=== PATIENT | male | born 1975 | race Two or more races ===

== ENCOUNTER 2018-11-29 11:40 | Emergency (ER) | payer SELFPAY ==
[~2018-11-29] VITALS: Ht 172.7 cm; Wt 86.4 kg
[2018-11-29 11:52] VITALS: Ht 172.7 cm; Wt 86.4 kg
[2018-11-29] MEDS ORDERED: HYDROCODONE/APAP (5/325) TAB PO ONE (13:00)
[2018-11-29] MEDS ORDERED: IBUPROFEN 600 MG TAB PO ONE (13:00)
--- NOTE | 2018-11-29 13:42 | ERD ---
ER Documentation Chief Complaint Chief Complaint RT ANKLE PAIN D/T FALL OFF 2.5' LADDER, NO DEFORMITY HPI 43-year-old male presents with pain in his right heel after falling approximately 2 feet from a ladder today. He has difficulty walking due to pain. Is no restricted range of motion weakness. He denies back pain, head injury. ROS All systems reviewed and are negative except as per history of present illness. Allergies Allergies: Coded Allergies: No Known Allergy (Unverified , 11/29/18) PMhx/Soc Medical and Surgical Hx: pt denies Medical Hx, pt denies Surgical Hx Hx Alcohol Use: No Hx Substance Use: No Hx Tobacco Use: No Smoking Status: Never smoker Physical Exam Vitals Vital Signs Date Temp Pulse Resp B/P (MAP) Pulse Ox O2 O2 Flow FiO2 Time Delivery Rate 11/29/18 97.6 76 18 146/79 97 11:52 (101) Physical Exam Const: No acute distress Head: Atraumatic Eyes: Normal Conjunctiva ENT: Normal External Ears, Nose and Mouth. Neck: Full range of motion. No meningismus. Resp: Clear to auscultation bilaterally Cardio: Regular rate and rhythm, no murmurs Abd: Soft, non tender, non distended. Normal bowel sounds Skin: No petechiae or rashes Back: No midline or flank tenderness Ext: No cyanosis, or edema or tenderness mild swelling over the right heel. No deformities. No tenderness around the ankle, or metatarsals were other parts of the foot. No appreciable knee, low back tenderness. Neur: Awake and alert Psych: Normal Mood and Affect Results 24 hrs Current Medications Medications Dose Sig/Sandip Start Time Status Last (Trade) Ordered Route PRN Stop Time Admin Dose Reason Admin Ibuprofen 600 mg ONCE ONCE 11/29/18 DC 11/29/18 (Motrin) PO 13:00 11/29/18 12:58 13:01 1 tab ONCE ONCE 11/29/18 DC 11/29/18 Acetaminophen PO 13:00 11/29/18 12:58 / 13:01 Hydrocodone Bitart ([place] (5/325)) Procedures/MDM X-ray right foot 3V Interpreted by me: Bones: No fracture Joints: No dislocation Foreign body: None. Impression-normal right foot x-ray Given [place] and ibuprofen for pain. Patient placed in right lower extremity Andrew bandage and postop shoe and given crutches with crutch training. Patient presents with signs and symptoms of right foot or heel contusion without evidence of fracture, dislocation, signs of deficits, infection or ischemia. He will be discharged home nonweightbearing with primary care follow-up and possible orthopedic evaluation for persistent pain next week. He should return sooner for new or worsening symptoms as directed and aftercare instructions such as redness, fevers, signs or symptoms of additional injury. The patient was stable with no new complaints during the ER course. Clinically, there is no current evidence to suggest meningitis, sepsis, acute abdomen, pneumonia, stroke, acute coronary syndrome, pulmonary embolism, aortic dissection or any other emergent condition appearing to require further evaluation or hospitalization. Patient counseled regarding my diagnostic impression and care plan. Prior to discharge all questions answered. Pt agrees with treatment plan and understands strict return precautions. Pt is instructed to follow up with primary care provider within 24-48 hours. Precautionary instructions provided including instructions to return to the ER if not improving or for any worsening or changing symptoms or concerns. TRESSA FOSS MD Nov 29, 2018 13:42
[2018-11-29] MEDS ORDERED: IBUP-1542 PO (13:43)
[2018-11-29] MEDS ORDERED: TRAM50TA2 PO ×2 (13:43→13:44)
[2018-11-29 14:22] VITALS: BP 142/78; PULSE 74; RESP 18
== END 2018-11-29 14:23 | disposition home or self-care (01) ==
LOC: FTE 11:40
DX: M25.571 Pain in right ankle and joints of right foot (principal)
CPT/HCPCS: 73630